=== PATIENT | male | born 1955 | race Caucasian/White ===

== ENCOUNTER → 2017-12-31 | Day surgery (SDC) | payer BC, OTHER ==
[~2017-12-31] MED LIST: AMBIEN10 MG PO; FENTANYL CITRATE/PF 100MCG/2 ML INJ ONE; HYOSCYAMINE SULFATE 0.5 MG/ML AMP ONE; LIDOCAINE HCL 2% LOCAL INJ 5 ML SDV VIAL INJ ONE; MIDAZOLAM HCL 2 MG/2 ML VIAL ONE; PROPOFOL IV EMULSION 10 MG/ML 50 ML VIAL ONE
--- NOTE | 2017-12-31 11:55 | Operative Report ---
DATE OF PROCEDURE: December 31, 2017 REFERRING PHYSICIAN: Dr. Larry Kent PROCEDURES PERFORMED 1. Esophagogastroduodenoscopy with biopsies. 2. Colonoscopy with polypectomy. INDICATIONS FOR EGD: Dyspepsia. INDICATIONS FOR COLONOSCOPY: Colorectal cancer screening. MEDICATION: Patient was done under MAC. Please see anesthesiologist's note. PROCEDURE: With the patient in the left lateral decubitus position, the flexible fiberoptic Olympus gastroscope was introduced into the esophagus under direct visualization without any difficulty. There was some patchy erythema noted in the distal esophagus. The scope was then advanced with ease into the stomach. The mucosa overlying the antrum and the body revealed low-grade to moderate edema, and biopsies were obtained and sent to stain for H. pylori. An approximately 1.2-cm, sessile, polypoid lesion with a minute ulcer was noted also in the antrum, and biopsies were obtained. The pylorus was of normal contour and shape. It was intubated with ease, and the scope was advanced all the way to the 2nd portion of the duodenum. The scope was then withdrawn slowly. Mucosa overlying the proximal 2nd portion appeared to be within normal limits. A cluster of nodules was noted along the anterior wall of the duodenal bulb, and biopsies were obtained. The scope was then withdrawn back into the stomach and retroflexed. Mucosa overlying the fundus and the cardia appeared to be within normal limits. The scope was then straightened out. The stomach was decompressed. Scope was subsequently withdrawn. Patient tolerated the procedure well. IMPRESSION 1. Distal esophagitis, mild. 2. Gastritis, biopsied. Biopsies sent to stain for H. pylori. 3. Duodenal bulb, clusters of nodules, anterior wall, biopsied. PLAN: Follow up histology. Initiate Protonix 40 mg 1 p.o. q.a.m. a.c. The patient was then turned around. After adequate lubrication of the anal canal, a flexible fiberoptic Olympus colonoscope was inserted into the rectum with ease and advanced all the way to the cecum. One polyp was snared from the cecum. The scope was then withdrawn slowly, and a minute polyp was hot biopsied from the ascending colon. The transverse appeared to be within normal limits. Diverticular disease was noted to involve the distal descending and the sigmoid colon. The rectum appeared to be within normal limits. The scope was then retroflexed into the distal rectum, and small internal hemorrhoids were noted, none of which was actively bleeding. The scope was then straightened out. The rectosigmoid area as well as the distal rectal area were decompressed. Scope was subsequently withdrawn. Patient tolerated the procedure well. IMPRESSION 1. Cecal polyp, snared. 2. Ascending colon polyp, hot biopsied. 3. Diverticulosis. 4. Internal hemorrhoids, none actively bleeding. PLAN: Follow up histology. Initiate high-fiber, low-fat diet. Initiate high-fiber supplement. Patient might benefit from a followup colonoscopy in 3 to 5 years. Job#: [id number] cc:LARRY KNET MD
== END | disposition home or self-care (01) ==
LOC: OR 07:46
PROVIDERS: ATTEND Internal Medicine Gastroenterology
DX: Z12.11 Encounter for screening for malignant neoplasm of colon (principal); D12.0 Benign neoplasm of cecum; D12.2 Benign neoplasm of ascending colon; K31.7 Polyp of stomach and duodenum; Q40.2 Other specified congenital malformations of stomach; K25.9 Gastric ulcer, unspecified as acute or chronic, without hemorrhage or perforation; K29.70 Gastritis, unspecified, without bleeding; K20.9 Esophagitis, unspecified; K31.89 Other diseases of stomach and duodenum; K57.30 Diverticulosis of large intestine without perforation or abscess without bleeding; K64.8 Other hemorrhoids; R03.0 Elevated blood-pressure reading, without diagnosis of hypertension; M21.372 Foot drop, left foot; Z01.810 Encounter for preprocedural cardiovascular examination; Z79.82 Long term (current) use of aspirin; Z68.27 Body mass index [BMI] 27.0-27.9, adult; Z86.73 Personal history of transient ischemic attack (TIA), and cerebral infarction without residual deficits; Z80.0 Family history of malignant neoplasm of digestive organs
CPT/HCPCS: 43239; 45384; 45385; 93005; J1980; J2001; J2250; 45378

== ENCOUNTER 2018-02-03 09:04 | Observation (INO) | payer OTHER ==
[~2018-02-03] VITALS: Ht 177.8 cm; Wt 87.6 kg
[~2018-02-03 09:04] MED LIST changes: -FENTANYL CITRATE/PF 100MCG/2 ML INJ ONE; -HYOSCYAMINE SULFATE 0.5 MG/ML AMP ONE; -LIDOCAINE HCL 2% LOCAL INJ 5 ML SDV VIAL INJ ONE; -MIDAZOLAM HCL 2 MG/2 ML VIAL ONE; -PROPOFOL IV EMULSION 10 MG/ML 50 ML VIAL ONE
[2018-02-03 10:03] LABS: BASOPHILS % 0.5 % (0.0-1.0); EOSINOPHILS # (AUTO) 0.2 (0.0-0.4); EOSINOPHILS % 2.6 % (0.0-6.0); HEMATOCRIT 44.9 % (38.2-49.6); HEMOGLOBIN 15.1 g/dL (14.0-18.0); LYMPHOCYTES # (AUTO) 1.3 (1.0-3.2); LYMPHOCYTES % 22.7 % (18.0-39.1); MEAN CORPUSCULAR HEMOGLOBIN 32.1 pg (28-32); MEAN CORPUSCULAR HGB CONC 33.6 g/dL (31-35); MEAN CORPUSCULAR VOLUME 95.5 fL (81-99); MONOCYTES # (AUTO) 0.6 (0.2-0.8); MONOCYTES % 10.1 % (4.4-11.3); NEUTROPHILS # (AUTO) 3.7 (2.1-6.9); NEUTROPHILS % 63.8 % (38.7-80.0); PLATELET COUNT 189 x10e3/uL (140-360); RED CELL DISTRIBUTION WIDTH 12.6 % (11.7-14.4)
[2018-02-03 10:11] LABS: INR 1.15; PROTHROMBIN TIME 13.8 seconds (11.9-14.5)
[2018-02-03 10:12] LABS: PARTIAL THROMBOPLASTIN TIME 27.7 seconds (23.8-35.5)
[2018-02-03 10:22] LABS: ALANINE AMINOTRANSFERASE 20 IU/L (0-55); ALBUMIN 4.2 g/dL (3.5-5.0); ALBUMIN/GLOBULIN RATIO 1.2 (0.8-2.0); ALKALINE PHOSPHATASE 53 IU/L (40-150); BLOOD UREA NITROGEN 13 mg/dL (7-26); BUN/CREATININE RATIO 15 (6-25); CALCIUM 9.3 mg/dL (8.4-10.2); CARBON DIOXIDE 25 mmol/L (22-29); CHLORIDE 103 mmol/L (98-107); CREATINE KINASE 145 IU/L (30-200); CREATININE, SERUM 0.84 mg/dL (0.72-1.25); EST GLOMERULAR FILTRATION RATE > 60 ML/MIN (60-); GLUCOSE 111 mg/dL (74-118); SODIUM 139 mmol/L (136-145)
[2018-02-03 10:22] LABS: BILIRUBIN,URINE NEGATIVE (NEGATIVE); CLARITY,URINE CLEAR (CLEAR); COLOR,URINE YELLOW (YELLOW); KETONES,URINE NEGATIVE (NEGATIVE); LEUKOCYTE ESTERASE ,URINE NEGATIVE (NEGATIVE); NITRITE,URINE NEGATIVE (NEGATIVE); PROTEIN,URINE DIPSTICK NEGATIVE (NEGATIVE); URINE UROBILINOGEN 0.2 mg/dL (0.2 - 1)
[2018-02-03 10:26] LABS: BACTERIA,URINE FEW /HPF; EPITHELIAL CELLS,URINE FEW /LPF; RBC,URINE 0-5 /HPF (0-5); WBC,URINE (MAN) 0-5 /HPF (0-5)
--- NOTE | 2018-02-03 11:07 | Diagnostic Imaging Report ---
Exam: Head CT without contrast History: Dizziness, CVA Comparison studies: None Technique: Axial images were obtained from the skull base to the vertex. Coronal and sagittal images reconstructed from the axial data. Radiation dose: Total DLP: 921 mGy*cm. Estimated effective dose: DLP x 0.015 Intravenous contrast: None Findings: Scalp: No abnormalities. Bones: No fractures, blastic or lytic lesions. Brain sulci: Mildly prominent. Ventricles: Ex vacuo dilatation of the atria of the left lateral ventricle due to volume loss from chronic insult described below. Extra-axial spaces: No masses, no fluid collection. Parenchyma: No mass, acute hemorrhage or acute cortical vascular insult. Chronic insult with encephalomalacia and gliosis centered along the right supramarginal gyrus and right side central gyrus in the right MCA territory. There are punctate right perisylvian MCA vascular calcifications adjacent to the infarct. Sellar/suprasellar region: No abnormalities. Craniocervical junction: Patent foramen magnum. No Chiari one malformation. Incidental findings: Punctate left middle frontal calcification may be vascular in etiology or possibly dystrophic related to previous infection/inflammation. Atherosclerotic calcifications in the carotid siphons. Nonspecific right frontoethmoidal portable sinus inflammatory mucosal thickening IMPRESSION: No acute intracranial abnormalities. Chronic findings: 1. Mild generalized volume loss. 2. Right inferior parietal/subcentral vascular insult in the right MCA territory. Signed by: Dr. Micah Campbell M.D. on 02/03/2018 11:04 AM
[2018-02-03] MEDS ORDERED: ONDANSETRON HCL INJ 2 MG/ML VIAL IV PRN (11:45)
[2018-02-03] MEDS ORDERED: NITROGLYCERIN 0.4 MG SUBL SL PRN (11:45)
[2018-02-03] MEDS ORDERED: ASPIRIN 81 MG CHEW TAB PO ONE (11:45)
[2018-02-03] MEDS: FAMOTIDINE 20 MG TAB PO SCH ×2 (13:06→23:45)
[2018-02-03] MEDS: NITROGLYCERIN 2% OINT 1 GM PKT TOP SCH ×2 (13:07→17:01)
[2018-02-03 13:20] LABS: CHOL/HDL RATIO 2.3 (3.9-4.7)
[2018-02-03 14:29] VITALS: BP 127/70
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
[2018-02-03 16:02] VITALS: BP 115/66
[2018-02-03 18:21] LABS: CREATINE KINASE MB 2.5 ng/mL (0-5.0)
[2018-02-03 20:03] VITALS: BP 176/86
[2018-02-03 20:14] VITALS: BP 128/78
[2018-02-03] MEDS ORDERED: ZOLPIDEM TARTRATE 10 MG TAB PO SCH (21:00)
--- NOTE | 2018-02-03 21:27 | Consultation ---
DATE OF CONSULTATION: February 03, 2018 CARDIOLOGY CONSULTATION REASON FOR CONSULTATION: Left arm and shoulder pain, near syncope. HISTORY OF PRESENT ILLNESS: Mr. Tate is a 62-year-old gentleman with past medical history of subacute bacterial endocarditis diagnosed 4 years ago with complication of right MCA distribution stroke resulting in left-sided body weakness with majority of recovery with exception of some footdrop in his left foot. Since that time, patient has changed his entire lifestyle. He has taken quite a bit of interest in his health and is exercising most days of the week between 3:30 to 4:15 in the morning doing a combination of weight exercise and cardio training. Patient reports typically he is able to do 30 minutes of treadmill exercise at a time without any issues; however, yesterday had an episode which scared him, prompting him to come. He reports that with 15 minutes into his exercise protocol, patient felt weak, near syncopal, and had severe tightness in his left posterior neck and left shoulder region. In fact, symptoms were so severe he ended up stopping. He felt overall malaise and not quite himself and decided to terminate his exercise routine. He spoke with his mom who is a nurse, who then recommended he should himself checked out, hence coming into the emergency room. Since he has been here, largely he is more or less back to baseline. He does report some occasional left body pain that happens off and on in relation to his stroke. He denies any orthopnea, lower extremity edema, or palpitations. He has had blacking out episodes in the past many, many years ago. As a child, he does report missing 6 weeks of school in the first grade and he thinks this may be related to his heart condition. PAST MEDICAL HISTORY: 1. Childhood illness in first grade, was out for 6 weeks, questionable rheumatic disease. 2. Subacute bacterial endocarditis, December 30, 2012, underwent 6 weeks of antibiotic therapy, his course is complicated by stroke, resulting in left-sided body weakness with reasonable recovery with the exception of some slight left footdrop. 3. Esophagitis and gastritis, diagnosed on EGD in December of 2017. 4. Colonoscopy with polyps, done in December of 2017, have been removed. FAMILY HISTORY: Mother alive at 86, has history of prior syncope. Father alive at 85 with moderate cognitive impairment and Parkinson's disease. SOCIAL HISTORY: He is a lifelong nonsmoker. Has occasional alcohol. Denies any illicit drug use. ALLERGIES: NO KNOWN DRUG ALLERGIES. HOME MEDICATIONS: 1. Ambien 10 mg nightly. 2. Protonix 40 mg daily. REVIEW OF SYSTEMS: GENERAL: Positive for fatigue and malaise. Denies any fevers, chills, weight changes. HEENT: No headaches, visual complaints, sore throat, stuffy nose. RESPIRATORY: Denies any pleuritic chest pain. Denies any exertional dyspnea. CARDIOVASCULAR: As per HPI. GI: Denies any nausea, vomiting, bright red blood per rectum, melena, hematemesis. : Denies any dysuria, pyuria, or changes in urinary frequency. MUSCULOSKELETAL: Positive for left footdrop and slight left-sided body weakness related to stroke, and left-sided arm and leg pain from time to time, but denies any typical claudication symptoms or lower extremity edema. SKIN: No rashes or breakdown. ID: Denies any infectious issues except for the history of endocarditis. NEUROLOGIC: Positive for right MCA distribution stroke with left-sided body weakness. Remainder of review of systems negative otherwise mentioned. PHYSICAL EXAMINATION: VITAL SIGNS: Temperature of 97.7, pulse of 62, respiratory rate 18, blood pressure 131/72, O2 sat 97% on room air. GENERAL: This is a well-nourished, well-developed gentleman, who is currently in no apparent distress. HEENT: Pupils are equal, round, and reactive to light. Extraocular movements are intact. Oropharynx is clear. NECK: No elevation of jugular venous pulsation. Faint right carotid bruit versus transmitted murmur. CARDIOVASCULAR: Regular rate and rhythm. Normal S1 and S2. 3/6 systolic murmur at the left lower sternal border and apical region. LUNGS: Clear to auscultation bilaterally with good air entry. ABDOMEN: Skinny, nontender, nondistended with normoactive bowel sounds. No hepatosplenomegaly. BACK: No costovertebral angle tenderness. EXTREMITIES: Warm with 2+ bilateral radial pulses, 2+ bilateral femoral pulses, and 2+ pedal pulses. NEUROLOGIC: Cranial nerves II-XII are intact. Strength is 5-/5 in the upper and lower extremity. Right side is neurologically intact. LABS: White count of 5.9, hemoglobin 15.1, hematocrit 44.9, platelets of 189,000. Sodium 139, potassium 4.0, chloride 102, bicarb 25, BUN 13, creatinine is 0.84, glucose of 111, calcium of 9.3. AST 20, ALT 20, alk phos 53. Total protein 7.6, albumin of 4.2. CK 145, MB of 3.8, troponin of 0.023. CT brain shows old right MCA distribution stroke. EKG reveals normal sinus rhythm and nonspecific T-wave inversions in the lateral precordial leads. DIAGNOSES: 1. Questionable equivalent angina type episode. 2. Near syncope. 3. Systolic murmur in the mitral position concerning for mitral valve pathology. 4. History of bacterial endocarditis in the remote past, resulting in stroke and left-sided body weakness. 5. Abnormal electrocardiogram. PLAN/RECOMMENDATIONS: 1. Will go ahead and check echocardiogram to evaluate his heart structurally. 2. Cycle serial cardiac enzymes. 3. Telemetry monitoring to look for any occult arrhythmias. 4. Proceed with nuclear cardiac stress test, may need to convert to a pharmacologic stress test on account of his neuro deficit specifically being his left footdrop. 5. Check TSH, lipid profile. 6. Will continue to monitor this patient. 7. Long discussion with patient who is agreeable with the plan. Job#: [id number] DR JAUREGUI
[2018-02-03 21:43] VITALS: BP 128/78
[2018-02-04] VITALS (7 sets, daily range): BP systolic 111–154; BP diastolic 58–78
[2018-02-04] MEDS: NITROGLYCERIN 2% OINT 1 GM PKT TOP SCH ×3 (04:51→12:28)
[2018-02-04 05:15] LABS: BASOPHILS % 0.4 % (0.0-1.0); EOSINOPHILS # (AUTO) 0.4 (0.0-0.4); EOSINOPHILS % 4.6 % (0.0-6.0); HEMATOCRIT 41.9 % (38.2-49.6); HEMOGLOBIN 14.2 g/dL (14.0-18.0); LYMPHOCYTES # (AUTO) 1.3 (1.0-3.2); LYMPHOCYTES % 16.9 % (18.0-39.1); MEAN CORPUSCULAR HEMOGLOBIN 32.3 pg (28-32); MEAN CORPUSCULAR HGB CONC 33.9 g/dL (31-35); MEAN CORPUSCULAR VOLUME 95.4 fL (81-99); MONOCYTES % 12.1 % (4.4-11.3); NEUTROPHILS # (AUTO) 5.2 (2.1-6.9); NEUTROPHILS % 65.7 % (38.7-80.0); PLATELET COUNT 172 x10e3/uL (140-360); RED BLOOD COUNT 4.39 x10e6/uL (4.3-5.7); RED CELL DISTRIBUTION WIDTH 12.7 % (11.7-14.4)
[2018-02-04 05:51] LABS: CREATINE KINASE MB 1.7 ng/mL (0-5.0)
[2018-02-04 06:17] LABS: CHOL/HDL RATIO 2.5 (3.9-4.7)
[2018-02-04 06:33] LABS: ANION GAP 14.2 mmol/L (8-16); BLOOD UREA NITROGEN 14 mg/dL (7-26); BUN/CREATININE RATIO 16 (6-25); CALCIUM 9.3 mg/dL (8.4-10.2); CARBON DIOXIDE 24 mmol/L (22-29); CHLORIDE 102 mmol/L (98-107); CREATININE, SERUM 0.85 mg/dL (0.72-1.25); EST GLOMERULAR FILTRATION RATE > 60 ML/MIN (60-); GLUCOSE 104 mg/dL (74-118); POTASSIUM 4.2 mmol/L (3.5-5.1); SODIUM 136 mmol/L (136-145)
[2018-02-04 06:54] LABS: THYROID STIMULATING HORMONE 1.762 uIU/mL (0.350-4.940)
[2018-02-04] MEDS ORDERED: ASPIRIN 81 MG ENTERIC COATED PO SCH (09:00)
[2018-02-04] MEDS ORDERED: METHYLPREDNISOLONE ACETATE 80 MG/ML VIAL IM NR ×2 (10:00→12:00)
[2018-02-04] MEDS ORDERED: REGADENOSON 0.4 MG/5 ML SYR IV ONE (10:40)
[2018-02-04] MEDS: FAMOTIDINE 20 MG TAB PO SCH (11:45)
[2018-02-04 13:52] LABS: CREATINE KINASE MB 1.8 ng/mL (0-5.0)
--- NOTE | 2018-02-06 00:28 | Discharge Summary ---
ADMIT DIAGNOSES 1. Equivalent angina type episode, questionable. 2. Exertional dizziness/near syncope. 3. Systolic murmur. 4. History of bacterial endocarditis resulting in right middle cerebral artery stroke in 2013. DISCHARGE DIAGNOSES 1. Anginal equivalent, resolved. 2. Moderate mitral regurgitation. 3. History of middle cerebral arterial embolic stroke after bacterial endocarditis in 2013. 4. Hypertensive heart disease. 5. Chronic diastolic congestive heart failure. HOSPITAL COURSE: This is a 62-year-old white man who was admitted to [facility] with a diagnosis of exertional dizziness and questionable equivalent anginal type episode. He is also diagnosed with possible near syncope as well as a holosystolic murmur. This gentleman has a history of bacterial endocarditis resulting in a right MCA embolic stroke in 2012. During this hospitalization, the patient underwent serial cardiac enzymes as well as electrocardiograms that did not reveal any evidence of acute myocardial ischemia or infarction. During this hospitalization, the patient was found to have LDL cholesterol of 78 mg. The patient's TSH is normal at 1.762. The patient underwent a 2D echocardiogram during this hospitalization that revealed a preserved left ventricular ejection fraction of 65% to 70%, but it did reveal diastolic filling pattern indicating impaired relaxation. Moreover, the patient was found to have [id number] mitral regurgitation. The patient's hospitalization was unremarkable. During this hospitalization, the patient underwent a nuclear stress test which was completely normal. The patient's condition on discharge was stable. During this hospitalization, the patient was evaluated by his seed corn production manager, namely Dr. Darlene Stubbs. DISCHARGE MEDICATIONS 1. Zolpidem 10 mg nightly. 2. Aspirin 81 mg daily. 3. Pantoprazole 40 mg daily. 4. Biotin once daily. 5. Tumeric once daily. FOLLOWUP INSTRUCTIONS: The patient is instructed to follow up with Dr. Darlene Stubbs, his seed corn production manager, within 1 to 2 weeks. The patient is instructed to follow up with his primary care physician, namely myself, Dr. Niurka Kent, within 2 weeks. The patient is instructed to go to nearest emergency room if he has any recurrence of symptoms. The patient was instructed not to drink more than 2 alcoholic drinks in 24 hours. Moreover during this hospitalization, the patient was informed that he may have to take a blood pressure medication in the near future, either beta blockers or EMERALD inhibitors. NIURKA KENT MD Job#: [id number] GE cc:DARLENE STUBBS MD
== END 2018-02-04 14:46 | disposition home or self-care (01) ==
LOC: ER 09:04 → ERHOLD 11:34 → IMCU 14:06
PROVIDERS: ADMIT Internal Medicine; ATTEND Internal Medicine
DX: I20.8 Other forms of angina pectoris (principal); R55 Syncope and collapse; R01.1 Cardiac murmur, unspecified; Z82.49 Family history of ischemic heart disease and other diseases of the circulatory system; R94.31 Abnormal electrocardiogram [ECG] [EKG]; I69.354 Hemiplegia and hemiparesis following cerebral infarction affecting left non-dominant side; I34.0 Nonrheumatic mitral (valve) insufficiency; I11.0 Hypertensive heart disease with heart failure; I50.32 Chronic diastolic (congestive) heart failure
CPT/HCPCS: 36415 ×2; 70450; 78452; 80048; 80053; 80061 ×2; 81001; 82550 ×2; 82553 ×2; 84443; 84484 ×2; 85025 ×2; 85610; 85730; 93005; 93017; 93306; 93880; 99284; A9502; G0378 ×2; J1040